=== PATIENT | female | born 1995 | race Hispanic/Latino ===

== ENCOUNTER 2017-10-25 15:27 | Observation (INO) | payer MEDICAID, OTHER ==
[~2017-10-25] VITALS: Ht 160 cm; Wt 82.1 kg
[~2017-10-25 15:27] MED LIST: PNV1TABL17 PO
[2017-10-25 16:35] LABS: BASOPHILS % (AUTO) 0.7 % (0.0-5.0); EOSINOPHILS % (AUTO) 5.9 % (0.0-8.0); HEMATOCRIT 45.6 % (36-48); LYMPHOCYTES % (AUTO) 23.1 % (21.0-51.0); MEAN CORPUSCULAR HEMOGLOBIN 29.4 pg (27.0-33.0); MEAN CORPUSCULAR HGB CONC 33.9 g/dL (32.0-36.0); MEAN CORPUSCULAR VOLUME 86.8 fL (80-100); MONOCYTES % (AUTO) 7.4 % (3.0-13.0); NEUTROPHILS % (AUTO) 62.9 % (40.0-77.0); PLATELET COUNT (AUTO) 434 K/uL (130-400); RED BLOOD CELL COUNT(AUTO) 5.26 MIL/uL (4.00-5.50); WHITE BLOOD COUNT (AUTO) 14.6 K/uL (4.8-10.8)
[2017-10-25] MEDS ORDERED: AMOXICILLIN/POTASSIUM CLAV 875-125 TABLET PO ONE (16:52)
[2017-10-25 16:53] LABS: CREATININE 0.8 mg/dL (0.5-1.5)
[2017-10-25 17:23] LABS: APPEARANCE,URINE Clear (CLEAR); BILIRUBIN,URINE Negative (NEGATIVE); COLOR,URINE Yellow (YELLOW); GLUCOSE, URINE (UA) Negative (NEGATIVE); KETONES,URINE Negative (NEGATIVE); LEUKOCYTE ESTERASE ,URINE Trace (NEGATIVE); NITRATE,URINE Negative (NEGATIVE); OCCULT BLOOD,URINE Negative (NEGATIVE); PH,URINE 7.5 (5.0-8.0); PROTEIN,URINE Negative (NEGATIVE)
[2017-10-25 17:41] LABS: BACTERIA,URINE Rare /HPF (None Seen); RBC,URINE 0-1 /HPF (0-1)
[2017-10-25 17:42] LABS: SQUAMOUS EPITHELIAL CELL,UR Few /HPF (0-2)
[2017-10-25 17:44] VITALS: BP 143/93
[2017-10-25 20:00] VITALS: BP 129/75
[2017-10-25] MEDS: SODIUM CHLORIDE 0.9% 1000ML 1,000 ML IV SCH (21:15)
[2017-10-25] MEDS: AMOXICILLIN/POTASSIUM CLAV 500-125 TABLET PO SCH (21:15)
[2017-10-25] MEDS ORDERED: ACETAMINOPHEN-CODEINE 300/30MG TAB PO PRN (21:15)
[2017-10-25] MEDS ORDERED: ONDANSETRON HCL 4 MG/2 ML VIAL IVP PRN (21:15)
[2017-10-26] VITALS: BP 117/63
[2017-10-26] MEDS ORDERED: ACETAMINOPHEN 325 MG TAB PO PRN (01:15)
[2017-10-26 03:05] VITALS: BP 120/70
[2017-10-26] MEDS: SODIUM CHLORIDE 0.9% 1000ML 1,000 ML IV SCH (05:15)
[2017-10-26 06:45] LABS: BASOPHILS % (AUTO) 1.1 % (0.0-5.0); HEMATOCRIT 42.3 % (36-48); LYMPHOCYTES % (AUTO) 34.4 % (21.0-51.0); MEAN CORPUSCULAR HGB CONC 33.4 g/dL (32.0-36.0); MEAN CORPUSCULAR VOLUME 86.9 fL (80-100); MONOCYTES % (AUTO) 6.7 % (3.0-13.0); NEUTROPHILS % (AUTO) 51.8 % (40.0-77.0); PLATELET COUNT (AUTO) 360 K/uL (130-400); RED BLOOD CELL COUNT(AUTO) 4.86 MIL/uL (4.00-5.50); RED CELL DISTRIBUTION WIDTH 12.8 % (11.0-15.5); WHITE BLOOD COUNT (AUTO) 13.3 K/uL (4.8-10.8)
[2017-10-26 07:58] VITALS: BP 130/73
[2017-10-26] MEDS: AMOXICILLIN/POTASSIUM CLAV 500-125 TABLET PO SCH (09:43)
[2017-10-26 11:35] VITALS: BP 130/78
[2017-10-26 15:29] VITALS: BP 119/71
== END 2017-10-26 17:25 | disposition home or self-care (01) ==
LOC: EDH 15:27 → EDHIP 15:28 → WSH 17:40
PROVIDERS: ADMIT Obstetrics & Gynecology; ATTEND Obstetrics & Gynecology
DX: N61.1 Abscess of the breast and nipple (principal)
CPT/HCPCS: 36415 ×2; 80048; 81001; 85025 ×2; 87070; 87076; 99285; G0378 ×26

== ENCOUNTER 2019-04-06 09:36 | Inpatient (IN) | payer MEDICAID ==
[~2019-04-06] VITALS: Ht 160 cm; Wt 92.5 kg
[2019-04-06 19:32] VITALS: BP 138/95
[2019-04-06] MEDS ORDERED: OXYTOCIN-LR 20 UNITS/1000 ML 1,000 ML IV SCH (19:45)
[2019-04-06] MEDS: LACTATED RINGERS 1000ML 1,000 ML IV PRN (20:14)
[2019-04-06 20:43] LABS: HEMATOCRIT 40.1 % (36-48); MEAN CORPUSCULAR HEMOGLOBIN 30.5 pg (27.0-33.0); MEAN CORPUSCULAR HGB CONC 34.3 g/dL (32.0-36.0); MEAN CORPUSCULAR VOLUME 88.8 fL (79-99); NUCLEATED RED BLOOD CELLS 0.1 % (0.0-0.19); PLATELET COUNT (AUTO) 165 K/uL (130-400); RED BLOOD CELL COUNT(AUTO) 4.51 MIL/uL (4.00-5.50); RED CELL DISTRIBUTION WIDTH 14.3 % (11.0-15.5); WHITE BLOOD COUNT (AUTO) 8.8 K/uL (4.8-10.8)
[2019-04-06 20:51] LABS: APPEARANCE,URINE Cloudy (CLEAR); BILIRUBIN,URINE Negative (NEGATIVE); COLOR,URINE Dark Yellow (YELLOW); GLUCOSE, URINE (UA) Negative (NEGATIVE); KETONES,URINE Negative (NEGATIVE); LEUKOCYTE ESTERASE ,URINE Small (NEGATIVE); NITRATE,URINE Negative (NEGATIVE); OCCULT BLOOD,URINE Negative (NEGATIVE); PH,URINE 6.5 (5.0-8.0); PROTEIN,URINE POS 1+ mg/dL (NEGATIVE)
[2019-04-06] MEDS ORDERED: GLYB2.5 PO (20:52)
[2019-04-06 21:23] LABS: BACTERIA,URINE Few /HPF (None Seen); RBC,URINE 0-1 /HPF (0-1)
[2019-04-06 21:24] LABS: AMORPHOUS SEDIMENT,UR Few /LPF (None Seen); SQUAMOUS EPITHELIAL CELL,UR Moderate /HPF (0-2)
[2019-04-07] MEDS: LACTATED RINGERS 1000ML 1,000 ML IV PRN (02:56)
[2019-04-07] MEDS ORDERED: LACTATED RINGERS 1000ML 1,000 ML IV SCH ×2 (04:27→08:28)
[2019-04-07] MEDS ORDERED: MAGNESIUM 4GM PREMIX 100ML 100 ML IV PRN ×2 (04:30→08:30)
[2019-04-07] MEDS ORDERED: CALCIUM GLUCONATE 1 GM/10 ML VIAL IV PRN ×2 (04:30→08:30)
[2019-04-07] MEDS ORDERED: MAGNESIUM SULFATE 1,000 ML IV ONE (04:32)
[2019-04-07] MEDS ORDERED: MAGNESIUM 4GM PREMIX 100ML 100 ML IV ONE (04:32)
[2019-04-07] MEDS ORDERED: MAGNESIUM SULFATE 1,000 ML IV SCH (04:55)
[2019-04-07 05:07] LABS: INR 0.87 (0.85-1.15); PARTIAL THROMBOPLASTIN TIME 26.8 SEC (26.3-35.5); PROTHROMBIN TIME 9.2 SEC (9.6-11.6)
[2019-04-07] MEDS ORDERED: MEPERIDINE-PF 50 MG/ML SYG IVP ONE (05:30)
[2019-04-07] MEDS ORDERED: PROMETHAZINE HCL 25 MG/ML 1ML AMPULE IM ONE (05:30)
[2019-04-07] MEDS ORDERED: MEPERIDINE-PF 50 MG/ML SYG ONE (05:34)
[2019-04-07 05:39] LABS: ALBUMIN 2.6 g/dL (3.5-5.0); BILIRUBIN,DIRECT 0.1 mg/dL (0.0-0.3); BILIRUBIN,TOTAL 0.4 mg/dL (0.2-1.0); CREATININE 0.9 mg/dL (0.5-1.5); URIC ACID 5.3 mg/dL (2.6-7.2)
[2019-04-07] MEDS ORDERED: LIDOCAINE HCL 1% 20 ML VIAL ONE (07:36)
[2019-04-07] MEDS ORDERED: MISOPROSTOL 200 MCG TABLET ONE (07:59)
[2019-04-07] MEDS ORDERED: MAGNESIUM SULFATE 1,000 ML IV PRN (08:28)
[2019-04-07] MEDS ORDERED: BENZOCAINE/LANOLIN/ALOE VERA 60 ML AEROSOL TP PRN (08:30)
[2019-04-07] MEDS ORDERED: WITCH HAZEL 1 PAD TP PRN (08:30)
[2019-04-07] MEDS ORDERED: ACETAMINOPHEN 325 MG TAB PO PRN (08:30)
[2019-04-07] MEDS ORDERED: LANOLIN 30GM OINTMENT TP PRN (08:30)
[2019-04-07] MEDS: IBUPROFEN 600 MG TABLET PO PRN (10:25)
[2019-04-07 17:42] LABS: RAPID PLASMA REAGIN REACTIVE (NONREACTIVE)
[2019-04-07 17:43] LABS: RAPID PLASMA REAGIN TITER REACTIVE 1:1 (NONREACTIVE)
[2019-04-07] MEDS ORDERED: PENICILLIN G BENZATHINE LA 1.2 MILUNITS/2 ML SYG IM ONE (19:40)
[2019-04-07] MEDS ORDERED: FLU VACC QS2019-20 36MOS UP/PF 60 MCG/0.5 ML ML IM ONE (21:00)
[2019-04-08] MEDS: IBUPROFEN 600 MG TABLET PO PRN ×3 (04:07→18:28)
[2019-04-08 05:52] LABS: HEMATOCRIT 30.2 % (36-48); MEAN CORPUSCULAR HEMOGLOBIN 30.4 pg (27.0-33.0); MEAN CORPUSCULAR HGB CONC 34.1 g/dL (32.0-36.0); MEAN CORPUSCULAR VOLUME 89.1 fL (79-99); PLATELET COUNT (AUTO) 178 K/uL (130-400); RED BLOOD CELL COUNT(AUTO) 3.39 MIL/uL (4.00-5.50); RED CELL DISTRIBUTION WIDTH 14.2 % (11.0-15.5); WHITE BLOOD COUNT (AUTO) 10.8 K/uL (4.8-10.8)
[2019-04-08 07:14] LABS: HEPATITIS Bs ANTIGEN SCREEN P Negative (Negative)
[2019-04-08] MEDS ORDERED: WITCH HAZEL 1 PAD TP PRN (08:30)
[2019-04-08] MEDS ORDERED: LANOLIN 30GM OINTMENT TP PRN (08:30)
[2019-04-08] MEDS ORDERED: DIPH,PERTUSS(ACELL),TET VAC/PF 0.5 ML VIAL IM PRN (08:30)
[2019-04-08] MEDS ORDERED: IBUPROFEN 600 MG TABLET PO PRN (08:30)
[2019-04-08] MEDS ORDERED: ACETAMINOPHEN 325 MG TAB PO PRN (08:30)
[2019-04-08] MEDS ORDERED: ACETAMINOPHEN-CODEINE 300/30MG TAB PO PRN (08:30)
[2019-04-08] MEDS ORDERED: BENZOCAINE/LANOLIN/ALOE VERA 60 ML AEROSOL TP PRN ×2 (08:30→08:45)
[2019-04-08] MEDS ORDERED: MEASLES/MUMPS/RUBELLA VACCINE, LIVE 0.5 ML/VIAL SQ PRN (08:30)
[2019-04-08] MEDS: DOCUSATE SODIUM 100 MG CAP PO SCH ×2 (09:00→21:35)
--- NOTE | 2019-04-08 09:30 | NUR ---
REPORT RECEIVED FROM JINA PICKETT RN L/D AND PATIENT WAS TRANSFERED AT THIS TIME TO ROOM 114. PATIENT DENIES PAIN AT THIS TIME BUT STATES HAVING SOME CRAMPING. PIV INFUSING TO LEFT HAND. PATIENT IS DUE TO VOID AND AFTER ASSESSMENT, PATIENT CALLED NEEDING TO VOID AND WAS ASSISTED UP TO BATHROOM AND VOIDED 500CC.
[2019-04-08 09:38] VITALS: BP 135/83
[2019-04-08 12:00] VITALS: BP 138/80
--- NOTE | 2019-04-08 14:00 | NUR ---
PATIENT UP TO BATHROOM FOR 3RD TIME AND DISCARDED 800CC OF YELLOW URINE FOR 2 VOIDS. PATIENT DENIES ANY DIZZINESS ON AMBULATION AND PIV WAS CONVERTED TO SALINE LOCK. FIRST TIME UP TO BATHROOM PATIENT C/O MILD BLURRINESS TO RIGHT EYE BUT DIMINISHED RIGHT AWAY.
[2019-04-08 16:55] VITALS: BP 129/80
--- NOTE | 2019-04-08 18:35 | NUR ---
PATIENT WAS GIVEN TDAP, MOTRIN, SITZ BATH, DERMAPLAST SPRAY AND TUCKS AND WAS INSTRUCTED ON USE. PATIENT AT THIS TIME. SALINE LOCK INTACT AND PATENT. PATIENT HOLDING BABY AND BONDING WELL. CONSENT OBTAINED FOR TDAP AND PATIENT TO BE GIVEN FLU VACCINE ONCE PROFILED.
--- NOTE | 2019-04-08 19:15 | NUR ---
REPORT GIVEN TO GARETT SUAZO AND FLU VACCINE WAS GIVEN.
[2019-04-08 19:18] VITALS: BP 127/75
--- NOTE | 2019-04-08 20:00 | NUR ---
CORRECTION DOCUMENTATION DONE AT 2000 ON 04/08/2019 Addendum: 04/09/19 at 0110 by ROSY CHRISTIANSON LVN Amended: Links added.
[2019-04-08 23:31] VITALS: BP 146/80
--- NOTE | 2019-04-09 01:10 | NUR ---
CORRECTION DOCUMENTATION DONE AT 2000 ON 04/08/2019 Addendum: 04/09/19 at 0111 by ROSY CHRISTIANSON LVN Amended: Links added.
--- NOTE | 2019-04-09 01:12 | NUR ---
CORRECTION DOCUMENTATION DONE AT 2000 ON 04/08/2019 Addendum: 04/09/19 at 0112 by ROSY CHRISTIANSON LVN Amended: Links added.
[2019-04-09 03:52] VITALS: BP 119/79
[2019-04-09 07:52] VITALS: BP 139/86
[2019-04-09] MEDS: DOCUSATE SODIUM 100 MG CAP PO SCH ×2 (09:31→21:09)
[2019-04-09] MEDS: IBUPROFEN 600 MG TABLET PO PRN (09:32)
--- NOTE | 2019-04-09 11:15 | NUR ---
DR. JENKINS ROUNDED AND INDICATED HAVING ORDERED HYDRAZALINE 10MGS IV PRN FOR DBP GREATER THAN 150. ROCEPHINE 1GM WAS ALSO ORDERED FOR URINARY TRACT INFECTION.
[2019-04-09 11:50] VITALS: BP 136/77
[2019-04-09 16:35] VITALS: BP 141/83
--- NOTE | 2019-04-09 17:00 | NUR ---
LAB CALLED AND SPOKE TO NITA AND INDICATED RPR LAB RESULTS WOULD NOT BE AVAILABLE UNTIL LATE TONIGHT OR TOMORROW. PATIENT VERBALIZED STILL HAVING HEADACHE AND WAS GIVEN TYLENOL AT THIS TIME FOR HEADACHE.
[2019-04-09 19:30] VITALS: BP 140/90
[2019-04-09 23:15] VITALS: BP 145/77
[2019-04-10 03:20] VITALS: BP 119/75
[2019-04-10 07:30] VITALS: BP 136/91
[2019-04-10] MEDS: DOCUSATE SODIUM 100 MG CAP PO SCH (09:10)
[2019-04-10] MEDS: IBUPROFEN 600 MG TABLET PO PRN (09:14)
--- NOTE | 2019-04-10 09:35 | NUR ---
DR. CARTY ROUNDED AND DISCHARGED PATIENT TO HOME TODAY. PATIENT RESTING AND BREASTFEDING BABY.
--- NOTE | 2019-04-10 10:15 | NUR ---
Tameka Webb NP rounded and bp on patient was done and was 147/96. Patient has been walking in hallway for about 30 minutes. Pt denies any further headaches. Addendum: 04/10/19 at 1319 by TAWNYA WEBB RN CHARTED ON WRONG PT.
[2019-04-10 12:00] VITALS: BP 139/84
--- NOTE | 2019-04-10 12:00 | NUR ---
WAS NOTIFIED THAT BABY WILL BE DISCHARGED TO HOME TODAY.
--- NOTE | 2019-04-10 12:10 | NUR ---
PATIENT WAS GIVEN DISCHARGE INSTRUCTIONS AND INSTRUCTED TO BUY MOTRIN 200MGS/IBUPROFEN 200GS AND TAKE 3 TABS EVERY 6 HOURS NEEDED FOR PAIN. PATIENT HAD SALINE LOCK REMOVED AND IV SITE SHOWS NO REDNESS, EDEMA OR DRAINAGE; PRESSURE APPLIED AND BANDAID APPLIED TO SITE. PATIENT IS TO CALL WHEN READY FOR DISCHARGE. BABY IS STILL PENDING DISCHARGE.
--- NOTE | 2019-04-10 13:35 | NUR ---
PATIENT DECIDED NOT TO WAIT FOR BABY'S FOOTPRINT AND WAS TAKEN VIA W/C WITH BABY IN ARMS AND WAS DISCHARGED TO HER PARENTS. PATIENT IS STABLE AND DENIES ANY PROBLEMS: NO HEADACHE, BLURRED VISION OR CHEST PAIN.
== END 2019-04-10 13:35 | disposition home or self-care (01) | DRG 560 ==
LOC: PREOBSVTOIN 09:36 → LDH 18:42 → WSH 04-08 09:30
PROVIDERS: ADMIT Obstetrics & Gynecology; ATTEND Obstetrics & Gynecology
PROC: 10E0XZZ Delivery of Products of Conception, External Approach (ICD-10-PCS; principal; 2019-04-06)
PROC: 10907ZC Drainage of Amniotic Fluid, Therapeutic from Products of Conception, Via Natural or Artificial Opening (ICD-10-PCS; 2019-04-06)
PROC: 0HQ9XZZ Repair Perineum Skin, External Approach (ICD-10-PCS; 2019-04-06)
PROC: 3E02340 Introduction of Influenza Vaccine into Muscle, Percutaneous Approach (ICD-10-PCS; 2019-04-07)
PROC: 3E0234Z Introduction of Serum, Toxoid and Vaccine into Muscle, Percutaneous Approach (ICD-10-PCS; 2019-04-08)
PROC: 3E0134Z Introduction of Serum, Toxoid and Vaccine into Subcutaneous Tissue, Percutaneous Approach (ICD-10-PCS; 2019-04-08)
DX: O13.4 Gestational [pregnancy-induced] hypertension without significant proteinuria, complicating childbirth (principal); Z37.0 Single live birth; O62.2 Other uterine inertia; O70.0 First degree perineal laceration during delivery; Z23 Encounter for immunization; Z3A.39 39 weeks gestation of pregnancy
CPT/HCPCS: 36415; 80076; 81001; 82565; 82948; 84520; 84550; 85027; 85384; 85610; 85730; 86592; 86780; 86850; 86900; 86901; 87340; 90715; A4314; A4606; G0008; G0378; J0561; J2175; J2590; J3475; J7120